=== PATIENT | male | born 1950 | race African-American/Black ===

== ENCOUNTER 2022-04-26 15:23 | Emergency (ER) | payer MEDICAID, MEDICARE ==
[~2022-04-26] VITALS: Ht 177.8 cm; Wt 82.0 kg
[2022-04-26] MEDS ORDERED: LEVETIRACETAM 500MG/5ML CUP PO ONE (16:00)
[2022-04-26 17:37] LABS: BASOPHILS % 0.7 % (0.0-2.0); EOSINOPHILS % 6.4 % (0.0-5.0); HEMOGLOBIN. 15.2 g/dL (14.0-18.0); LYMPHOCYTES % 18.5 % (20.0-50.0); MEAN CORPUSCULAR HEMOGLOBIN 27.1 pg (28.0-32.0); MEAN CORPUSCULAR VOLUME 83.6 fL (80.0-94.0); MEAN PLATELET VOLUME 9.3 fl (7.4-10.4); MONOCYTES % 7.1 % (2.0-8.0); NEUTROPHILS % 67.3 % (40.0-76.0); PLATELET 190 x1000/uL (130-400); RED BLOOD CELL COUNT 5.62 mill/uL (4.7-6.1); RED CELL DISTRIBUTION WIDTH 16.4 % (11.6-14.6)
[2022-04-26 17:45] LABS: CHLORIDE 111 mEq/L (98-107)
[2022-04-26 17:53] LABS: ETHANOL BLOOD < 10 mg/dL
[2022-04-26 18:00] LABS: CLARITY URINE CLEAR (CLEAR); COLOR URINE YELLOW (YELLOW); KETONES URINE NEGATIVE (NEGATIVE); LEUKOCYTE ESTERASE URINE 1+ (NEGATIVE); NITRITE URINE NEGATIVE (NEGATIVE); OCCULT BLOOD URINE NEGATIVE (NEGATIVE); PH URINE 6.5 (4.5-8.0); PROTEIN URINE NEGATIVE (NEGATIVE); SPECIFIC GRAVITY URINE 1.015 (1.005-1.030)
[2022-04-26] MEDS ORDERED: LEVETIRACETAM 500MG PREMIX 100 ML IV NR (18:15)
[2022-04-26 18:17] LABS: *AMPHETAMINES SCREEN URINE NEGATIVE (NEGATIVE); *BARBITURATES SCREEN URINE NEGATIVE (NEGATIVE); *BENZODIAZEPINES SCREEN URINE NEGATIVE (NEGATIVE); *COCAINE SCREEN URINE PRESUMTIVE POSITIVE (NEGATIVE); CANNABINOID URINE SCREEN NEGATIVE (NEGATIVE); METHADONE URINE SCREEN NEGATIVE (NEGATIVE); OPIATES URINE SCREEN NEGATIVE (NEGATIVE); PHENCYCLIDINE URINE SCREEN NEGATIVE (NEGATIVE)
[2022-04-26 19:56] VITALS: BP 144/57
== END 2022-04-26 22:23 | disposition home or self-care (01) ==
LOC: ER 15:23 → EDBD 15:23 → ER 22:23
DX: R56.9 Unspecified convulsions (principal)
CPT/HCPCS: 36415; 70450; 72125; 80053; 80305; 80320; 81003; 82140; 85025; 96365; 99284; J1953; G0480